=== PATIENT | female | born 1980 | race Caucasian/White ===

== ENCOUNTER 2016-10-31 03:45 | Inpatient (IN) ==
[2016-10-31] MEDS ORDERED: Penicillin G Potassium 5,000,000 UNIT in D5% in Water (Mini-Bag+) 100 ML IVPB ONE (04:04)
[2016-10-31] MEDS ORDERED: Metoclopramide 10 MG/2 ML VIAL IVP PRN (04:04)
[2016-10-31] MEDS ORDERED: Famotidine 20 MG/2 ML VIAL IVP PRN (04:04)
[2016-10-31] MEDS ORDERED: Naloxone 0.4 MG/ML INJ IVP PRN (04:04)
[2016-10-31] MEDS ORDERED: *HR* Nalbuphine 20 MG/ML AMPUL IVP PRN (04:07)
[2016-10-31] MEDS ORDERED: miSOPROStol 25 MCG TABLET VG SCH (04:15)
[2016-10-31 04:53] LABS: Basophils % 0.3 %; Eosinophils # 0.1 K/mcL (0.0-0.6); Hematocrit 32.6 % (35.3-44.9); Hemoglobin 10.6 g/dL (11.5-15.4); Immature Granulocytes % 1.4 % (0-4); Lymphocytes # 2.7 K/mcL (0.6-4.6); Lymphocytes % 21.3 %; Mean Corpuscular HGB Conc 32.5 g/dL (31.6-35.5); Monocytes # 1.1 K/mcL (0.0-1.3); Monocytes % 8.6 %; Neutrophils # 8.5 K/mcL (1.6-8.9); Platelet Count 251 K/mcL (140-400); Red Blood Count 3.93 M/mcL (3.82-4.97); Red Cell Distribution Width 13.5 % (11.5-14.5); Segmented Neutrophils % 67.4 %
[2016-10-31] MEDS: Ringers Solution, Lactated 1,000 ML IVC SCH ×2 (05:03→10:11)
[2016-10-31] MEDS ORDERED: 0.9 % Sodium Chloride 500 ML ONE (05:55)
--- NOTE | 2016-10-31 07:13 | OB/GYN History & Physical ---
Date of Encounter: 10/31/16 Time of Encounter: 07:05 Assessment and Plan (1) and not yet delivered in third trimester Current visit: Yes Status: Acute (2) 39 weeks gestation of Current visit: Yes Status: Acute (3) Elective induction of labor planned Current visit: Yes Status: Acute Patient will be induced with a Mallory catheter and Cytotec plan is to anticipate vaginal delivery. (4) Family planning advice Current visit: Yes Status: Acute Patient is scheduled for bilateral partial salpingectomy tomorrow History of Present Illness HPI: Ms. Sewell is a 36 year old female 7 [id number] at 39-3/7 weeks by a 13-4/ 7 week ultrasound who presented for induction of labor. Patient had a favorable cervix and was wanting to be induced. She has been suffering with severe hip pain for the last 2-3 weeks to the point she said difficulty in dilating. Patient denies any leaking fluid has been having occasional contractions. course has been unremarkable. 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 Patient is wanting a tubal ligation the risks and benefits of the tubal were expanded to patient with a failure rate of 5-8 per thousand with increased risk of ectopic if was to occur. Past Med Surg Social Fam HX - Past Medical History Medical history: no medical history Psychiatric history: anxiety, depression - Past Surgical History Surgical History: no surgical history - Social History Smoking Status: Never smoker Smokeless Tobacco Status: No Alcohol use: none Drug use: none, other (Does have a history of past drug use) Occupational status: employed Current living situation: Home - Independent Activity Level: Independent ambulation Recent Out of Country Travel Within the Last 8 Weeks: No Exposure or Possible Exposure to Illness During Travel: No - Family History Maternal Grandmother Hx Family Cancer: Yes (LUNG Cancer) - Additional Family History Additional family history: Family history noncontributory Obstetrical History - Pregnancies : 7 Para: 3 Term: 3 : 0 Ab's: 3 Livin Medications and Allergies Ranitidine HCl [Acid Regional Construction Manager] 150 mg PO DAILY 10/31/16 [History] Allergies gentamicin Allergy (Verified 10/31/16 04:12) Rash Review of System OB All systems PM: reviewed and no additional remarkable complaints except as stated Exam - Vital Signs Vital signs: Initial Vital Signs Temp Pulse Resp BP 97.4 F L 80 16 111/93 10/31/16 04:17 10/31/16 04:17 10/31/16 04:17 10/31/16 04:17 - Constitutional Constitutional: well developed, well nourished, average body habitus, moderate distress - HEENT HEENT: EOMI, PERRL - Neck Neck exam: full ROM - Lungs Respiratory exam: CTAB - Abdomen Abdomen: Present: bowel sounds normal, gravid - Cervix Dilation: 3 Effacement: 80 Station: -3 (Mallory catheter placed 40 mL balloon inflated) - Uterus Uterus exam: Present: normal size Results Result Diagrams: 10/31/16 04:35 Abnormal lab results WBC 12.6 K/mcL (4.3-11.1) H 10/31/16 04:35 Hgb 10.6 g/dL (11.5-15.4) L 10/31/16 04:35 Hct 32.6 % (35.3-44.9) L 10/31/16 04:35 MCH 27.0 pg (28.0-33.3) L 10/31/16 04:35 All other labs normal. - VTE Reasons for not Prescribing Prophylaxis: Treatment not Indicated - Low risk for VTE
[2016-10-31] MEDS: Penicillin G Potassium 2,500,000 UNIT in D5% in Water 100 ML IVPB SCH ×3 (09:03→17:07)
[2016-10-31] MEDS ORDERED: Ondansetron 4 MG/2 ML VIAL IVP PRN (09:09)
[2016-10-31] MEDS ORDERED: Epidural Premix (fent/bupiv) 110 ML EP ONE ×2 (10:22→17:26)
--- NOTE | 2016-10-31 10:27 | Anesthesia Evaluation PreOp ---
Date of Encounter: 10/31/16 Time of Encounter: 10:24 - Past History Planned Operation: BRANDYN Cardiac History: Denies any Significant Hx Pulmonary History: Denies Any Significant HX UTILIZATION MANAGEMENT UM NURSE History: Denies Any Significant HX Other Medical History: Denies Any Significant HX Anesthesia History: No Prior Anesthetic Complications, Past Anesthesia : Yes (39.3) Test: Positive Alcohol Use: none Drug use: none, other (Does have a history of past drug use) Medications and Allergies Ranitidine HCl [Acid Software Educator] 150 mg PO DAILY 10/31/16 [History] Allergies gentamicin Allergy (Verified 10/31/16 04:12) Rash - Meds/Allergy Pre-op Review Medications Reviewed: Yes Allergies Reviewed: Yes Beta Blockers on Current Med List: No Anesthesia Results - Labs 10/31/16 04:35 Anesthesia Exam 112/68 18 98% 77 fht 173 Height: 66 Weight: 229 NPO (# of Hours): mn Pain Scale: 5 - HEENT Pupil (Motor): Pupils equal Teeth: Normal Oral Opening: Greater than 3 - UTILIZATION MANAGEMENT UM NURSE LOC: Oriented UTILIZATION MANAGEMENT UM NURSE Motor: Normal RUE, Normal LUE, Normal RLE, Normal LLE, Normal Face UTILIZATION MANAGEMENT UM NURSE Sensory: Normal: RUE, LUE, RLE, LLE, Face
[2016-10-31] MEDS ORDERED: Epidural Premix (fent/bupiv) 110 ML EP SCH (10:30)
--- NOTE | 2016-10-31 10:53 | Anesthesia Procedures ---
Date of Encounter: 10/31/16 Time of Encounter: 10:30 Procedures: Anesthesia - Epidural/Spinal Patient ID/Chart reviewed: Yes Patient examined: Yes OB Eval: Gestational age: 39.1 OB Eval: : 5 OB Eval: Hx Para: 3 OB Eval: Dilated at (cm): 4 OB Eval: Contractions: Non-stressed pattern Consent Obtained: Yes Supplemental Oxygen: None/Room Air Site Prep: Aseptic Technique, Sterile prep and drape, Povidone-Iodine 1% Patient position: upright Local Anesthetic: Lidocaine 1% Amount of Local Anesthetic used: 3 Touhy Needle Gauge: 18 Touhy Needle Depth (cm): 7 Catheter Depth at Skin (cm): 9 Test Dose (1.5% Lido + Epi): Volume given (mls): 3 Test Dose Result: Negative Loading Dose Administered: Thru Catheter Infusion Med: 0.125% Bupivacaine w/ 2 mcg/ml Fentanyl Infusion Rate (mls/hr): [address]: Tegaderm, Tape Interspace Used: L3-L4 Loss of Resistance (NEIDA): Yes Blood: No CSF: No Paresthesia: No Vitals + FHT's: stable throuhout see nursing notes
[2016-10-31] MEDS ORDERED: Terbutaline 1 MG/ML VIAL SQ ONE ×2 (11:02→11:05)
[2016-10-31] MEDS ORDERED: EPHEDrine 50 MG/ML VIAL ONE (11:49)
[2016-10-31] MEDS ORDERED: *HR* Promethazine 25 MG/ML VIAL IVP PRN ×2 (12:10→12:26)
--- NOTE | 2016-10-31 12:45 | OB Labor Progress Note ---
Date of Encounter: 10/31/16 Time of Encounter: 12:40 Labor Progress Note - Subjective Subjective: Patient nauseated after epidural blood pressure had dropped but feeling a little bit better. Mallory catheter is out not feeling contractions anymore - Cervix Cervix: 5/80/-2 AROM large amt clear fluid - Heart Tones Heart Tones: FSM placed FHT's 140's reactive - Burchinal Burchinal: IUPC placed contractions every 2 min - Plan Plan: anticipate
[2016-10-31] MEDS ORDERED: Oxytocin 20 units/ LR 1000 mL 20 UNIT/1,000 ML BAG IVC SCH (14:25)
--- NOTE | 2016-10-31 17:05 | OB Labor Progress Note ---
Date of Encounter: 10/31/16 Time of Encounter: 16:00 Labor Progress Note - Subjective Subjective: Patient is still very comfortable not feeling contractions at this time. - Cervix Cervix: 6/80/-2 - Heart Tones Heart Tones: heart tones 140s reactive with occasional early decelerations seen - Shattuck Shattuck: Contractions every 2-4 minutes - Plan Plan: Continue current care anticipate normal spontaneous vaginal delivery
--- NOTE | 2016-10-31 17:06 | OB Labor Progress Note ---
Date of Encounter: 10/31/16 Time of Encounter: 17:00 Labor Progress Note - Subjective Subjective: Patient beginning to feel a little bit of pressure in the contractions but still tolerating them well - Cervix Cervix: 7/100/-1 - Heart Tones Heart Tones: heart tones in the 140s reactive - Wyndham Wyndham: Contractions every 2 minutes adequate - Plan Plan: We will hold pit at current dose and anticipate normal spontaneous vaginal delivery
--- NOTE | 2016-10-31 19:06 | OB/GYN Procedure Note ---
Delivery - Delivery Date: 10/31/16 Provider: Can Jesus Intrapartum events: none Delivery induction: AROM, oxytocin, rosario, misoprostol Delivery monitor: external FHT, external uterine, internal FHT, internal uterine Anesthesia: epidural Estimated Blood Loss: 100 - (s) Infant A Infant Delivery Date: 10/31/16 Delivery Time: 18:42 Presentation: vertex Position: VETO Route of delivery: Gender: Female Viability: Viable Pounds: 7 Ounces: 8 Weight Gram: 3.4 kg at 1 minute: 8 at 5 mins: 9 Shoulder Dystocia: not encountered Specimens collected: cord blood Placenta: spontaneous Cord: nuchal cord (Times 2), 3 umbilical vessels, nuchal reduced - Repair Episiotomy: none Laceration Description: None - Complications Delivery complications: none Delivery comments: Patient is a 36-year-old 7 para [id number] at 39-2/7 weeks who presented for induction of labor. Patient had a favorable cervix and was having hip pain and requested induction. She does report to labor and delivery Cytotec was placed along with a Rosario catheter. Catheter fell out when she was 4-5 cm epidural was placed she was artificially ruptured clear fluid noted. Patient progressed slowly to approximately 6 cm and rapidly from this point. Patient became complete and pushed one time delivering a viable female in right occiput anterior presentation at 1842. There was a nuchal cord 2 loose and reduced there was no meconium the was bulb suctioned on the abdomen Apgars were 8 at 1 minute and 9 at 5 minutes. weight was 7 lbs. [address] Jesus anesthesia epidural. Placenta delivered spontaneously 3 vessel cord , perineum cervix and vagina was all visualized intact. Patient tolerated the delivery well will be observed 2 hours before being taken floor. - Disposition Mom disposition: stable in LDR [place] disposition: stable in LDR
[2016-10-31] MEDS ORDERED: Oxytocin 20 units/ LR 1000 mL 20 UNIT/1,000 ML BAG IVC ONE (20:03)
[2016-10-31] MEDS ORDERED: Acetaminophen 325 MG TABLET PO PRN (20:03)
[2016-10-31] MEDS ORDERED: Measles/Mumps/Rubella Vacc 0.5 ML VIAL SQ PRN (20:03)
[2016-10-31] MEDS ORDERED: Oxytocin 20 units/ LR 1000 mL 20 UNIT/1,000 ML BAG IV SCH (20:03)
[2016-10-31] MEDS: Ibuprofen 600 MG TABLET PO PRN (20:14)
[2016-11-01 03:45] LABS: Basophils % 0.2 %; Eosinophils # 0.1 K/mcL (0.0-0.6); Eosinophils % 0.4 %; Hematocrit 27.7 % (35.3-44.9); Immature Granulocytes % 0.7 % (0-4); Immature Platelets 8.9 % (1.1-6.1); Lymphocytes # 2.4 K/mcL (0.6-4.6); Lymphocytes % 13.9 %; Mean Corpuscular HGB Conc 32.1 g/dL (31.6-35.5); Mean Corpuscular Hemoglobin 26.8 pg (28.0-33.3); Mean Corpuscular Volume 83.4 fL (83.0-100.0); Monocytes # 1.6 K/mcL (0.0-1.3); Monocytes % 9.7 %; Neutrophils # 12.7 K/mcL (1.6-8.9); Platelet Count 225 K/mcL (140-400); Red Blood Count 3.32 M/mcL (3.82-4.97); Red Cell Distribution Width 13.7 % (11.5-14.5); Segmented Neutrophils % 75.1 %
[2016-11-01 03:48] LABS: Hemoglobin 8.9 g/dL (11.5-15.4)
[2016-11-01] MEDS: Ibuprofen 600 MG TABLET PO PRN (04:26)
[2016-11-01 07:58] VITALS: BP 100/70
--- NOTE | 2016-11-01 08:20 | Discharge Summary ---
Date of Encounter: 11/01/16 Time of Encounter: 08:18 - Discharge Diagnosis (1) Vaginal delivery Priority: Primary Status: Acute Comments: Continue routine care discharge home today (2) Breast feeding status of mother Priority: Secondary Status: Acute Comments: support PRN - Discharge Medications Prescriptions: Ibuprofen [Motrin] 600 mg PO Q6HR PRN #60 tablet PRN Reason: Cramping Breast Pump [BREAST PUMP] 1 each .ROUTE AD #1 each Home Medications: Ranitidine HCl [Acid Rubber Press Operator] 150 mg PO DAILY 10/31/16 [History] Breast Pump [BREAST PUMP] 1 each .ROUTE AD #1 each 11/01/16 [Rx] Ibuprofen [Motrin] 600 mg PO Q6HR PRN #60 tablet 11/01/16 [Rx] Vit/FA 1 each PO DAILY tablet 11/01/16 [Rx] Allergies/Adverse Reactions: Allergies gentamicin Allergy (Verified 10/31/16 04:12) Rash Data Procedures and tests throughout hospitalization: Laboratory Tests 10/31/16 10/31/16 11/01/16 04:35 19:00 03:27 WBC 12.6 H 16.9 H RBC 3.93 3.32 L Hgb 10.6 L 8.9 L D Hct 32.6 L 27.7 L MCV 83.0 83.4 MCH 27.0 L 26.8 L MCHC 32.5 32.1 RDW 13.5 13.7 Plt Count 251 225 MPV 12.0 12.0 Immature Gran % 1.4 0.7 Seg Neutrophils % 67.4 75.1 Lymphocytes % 21.3 13.9 Monocytes % 8.6 9.7 Eosinophils % 1.0 0.4 Basophils % 0.3 0.2 Neutrophils # 8.5 12.7 H Lymphocytes # 2.7 2.4 Monocytes # 1.1 1.6 H Eosinophils # 0.1 0.1 Basophils # 0.0 0.0 Immature Plt Fraction 8.9 H Baby's Blood Type O RH POSITIVE Mother's Blood Type O RH NEGATIVE Rhogam Indicated YES Labs on day of discharge: Labs from last 24 hours 11/01/16 10/31/16 03:27 19:00 WBC 16.9 H RBC 3.32 L Hgb 8.9 L D Hct 27.7 L MCV 83.4 MCH 26.8 L MCHC 32.1 RDW 13.7 Plt Count 225 MPV 12.0 Immature Gran % 0.7 Seg Neutrophils % 75.1 Lymphocytes % 13.9 Monocytes % 9.7 Eosinophils % 0.4 Basophils % 0.2 Neutrophils # 12.7 H Lymphocytes # 2.4 Monocytes # 1.6 H Eosinophils # 0.1 Basophils # 0.0 Immature Plt Fraction 8.9 H Screen Pending Baby's Blood Type O RH POSITIVE Mother's Blood Type O RH NEGATIVE Rhogam Indicated YES Rhogam Req for Mother Pending Date of admission: 10/31/16 04:02 Primary care physician: Carlo Bennett MD Discharging clinician: Roseanne Elliott Anticipated date of discharge: 11/01/16 - Patient Status Disposition: Home, Self-Care Condition: Good Functional capacity at discharge: independent ambulation - Discharge Instructions Follow Up With: Carlo Bennett MD [Primary Care Provider] - Can Jesus DO [Partnered Physician] - - Diet and Activity Activity: increase activity as tolerated Diet: regular diet Hospital Course Reason for admission: induction of labor Delivery: Episiotomy: none Other procedures: none complications: none Discharge diagnosis: IUP at term delivered baby: female (breast feeding) Time Attestation: Total time spent providing and/or coordinating discharge services: Time Spent: Less than 30 minutes Exam - Constitutional Vitals: Temp Pulse Resp BP Pulse Ox 98 F 83 12 100/70 99 11/01/16 07:56 11/01/16 07:56 11/01/16 07:56 11/01/16 07:56 11/01/16 07:56 General appearance IM: A&O X 3, pleasant, answers questions appropriately - Respiratory Respiratory exam: Present: CTAB - Cardiovascular Cardiovascular exam IM: Present: RRR, +S1, +S2 - GI/Abdominal GI/Abdominal exam IM: normal bowel sounds - Uterine Tone: Firm Uterus Position: At Umbilicus, Midline - Extremities Exam Extremities exam IM: Present: normal capillary refill, normal inspection - Neurological Exam Neurological exam: alert, oriented X3, reflexes normal
[2016-11-01] MEDS ORDERED: Prenatal Vit/FA 1 EACH TABLET PO SCH (09:00)
[2016-11-01] MEDS ORDERED: Famotidine 20 MG TABLET PO SCH (09:00)
[2016-11-01] MEDS ORDERED: Rho Immune Globulin 1,500 UNIT SYRINGE IM ONE (10:23)
== END 2016-11-01 17:20 | disposition home or self-care (01) | DRG 560 ==
LOC: 1NENULAB 04:02 → 1NENUOBS 21:30
PROVIDERS: ADMIT Obstetrics & Gynecology; ATTEND Obstetrics & Gynecology

== ENCOUNTER 2021-04-18 22:08 | Inpatient (IN) ==
[2021-04-19] MEDS ORDERED: Naloxone 0.4 MG/ML INJ IVP PRN (01:28)
[2021-04-19] MEDS ORDERED: Ondansetron 4 MG/2 ML VIAL IVP PRN (01:28)
[2021-04-19] MEDS ORDERED: 0.9 % Sodium Chloride 1,000 ML IVC SCH (01:30)
[2021-04-19 02:37] LABS: Basophils % 0.2 %; Eosinophils % 0.1 %; Hematocrit 34.4 % (35.3-44.9); Hemoglobin 11.5 g/dL (11.5-15.4); Immature Granulocytes % 0.5 % (0-4); Lymphocytes # 1.1 K/mcL (0.6-4.6); Lymphocytes % 5.8 %; Mean Corpuscular HGB Conc 33.4 g/dL (31.6-35.5); Mean Corpuscular Volume 86.6 fL (83.0-100.0); Mean Platelet Volume 12.3 fL (9.4-12.4); Monocytes # 1.9 K/mcL (0.0-1.3); Monocytes % 10.2 %; Neutrophils # 15.2 K/mcL (1.6-8.9); Platelet Count 219 K/mcL (140-400); Red Blood Count 3.97 M/mcL (3.82-4.97); Red Cell Distribution Width 15.9 % (11.5-14.5); Segmented Neutrophils % 83.2 %; White Blood Count 18.3 K/mcL (4.3-11.1)
[2021-04-19 02:42] LABS: INR 1.1; Prothrombin Time 12.2 Seconds (9.4-12.1)
[2021-04-19 02:44] LABS: Activated Partial Thrombo Time 25.6 Seconds (26.0-36.0)
[2021-04-19 03:10] LABS: Alanine Aminotransferase 834 Units/L (7-52); Albumin 3.2 g/dL (3.5-5.7); Albumin/Globulin Ratio 1.2 (1.1-2.2); Alkaline Phosphatase 214 Units/L (34-104); Aspartate Amino Transferase 432 Units/L (13-39); BUN/Creatinine Ratio 16 (6-26); Bilirubin,Total 1.5 mg/dL (0.3-1.0); Blood Urea Nitrogen 13 mg/dL (6-20); Calcium 8.9 mg/dL (8.6-10.3); Carbon Dioxide 21 mEq/L (23-29); Chloride 107 mEq/L (98-107); Chol/HDL Ratio 6.9 (0-4.9); Cholesterol 172 mg/dL (< 200); Globulin 2.7 g/dL (2.4-3.5); Glucose 118 mg/dL (70-105); HDL Cholesterol 25 mg/dL (40-59); LDL Cholesterol,Calculated 129 mg/dL (< 100); Osmolality,Calculated 283 (280-300); Potassium 3.3 mEq/L (3.5-5.1); Sodium 136 mEq/L (136-145); Thyroid Stimulating Hormone 2.199 mcIU/mL (0.340-5.600); Total Protein 5.9 g/dL (6.4-8.9); Triglycerides 92 mg/dL (< 150); eGFR For African Americans > 60 (> 60); eGFR For Non-African Americans > 60 (> 60)
[2021-04-19 03:15] LABS: Hepatitis B Surface Antigen Nonreactive (Nonreactive)
[2021-04-19 03:46] LABS: Hepatitis A Antibody IgM Nonreactive (Nonreactive)
[2021-04-19 03:49] LABS: Hepatitis B Core IgM Nonreactive (Nonreactive)
[2021-04-19 05:09] LABS: Hepatitis C Virus Antibody Reactive (Nonreactive)
[2021-04-19 07:34] LABS: Adenovirus Not Detected (Not Detect); Bordetella Pertussis Not Detected (Not Detect); Chlamydophila pneumoniae Not Detected (Not Detect); Coronavirus 229E Not Detected (Not Detect); Coronavirus HKU1 Not Detected (Not Detect); Coronavirus NL63 Not Detected (Not Detect); Coronavirus OC43 Not Detected (Not Detect); Human Metapneumovirus Not Detected (Not Detect); Human Rhinovirus/Enterovirus Not Detected (Not Detect); Influenza A Subtype 2009 H1 Not Detected (Not Detect); Influenza B Not Detected (Not Detect); Mycoplasma pneumoniae Not Detected (Not Detect); Parainfluenza Virus 1 Not Detected (Not Detect); Parainfluenza Virus 2 Not Detected (Not Detect); Parainfluenza Virus 3 Not Detected (Not Detect); Parainfluenza Virus 4 Not Detected (Not Detect); Respiratory Syncytial Virus Not Detected (Not Detect); SARS-CoV-2 Not Detected (Not Detect)
[2021-04-19] MEDS ORDERED: Potassium Chloride 20 MEQ, Lidocaine 1% 2 ML in 0.9 % Sodium Chloride 250 ML IVPB ONE (09:09)
[2021-04-19] MEDS: 0.9 % Sodium Chloride 1,000 ML IVC SCH ×2 (10:04→20:20)
[2021-04-19] MEDS: cefTRIAXone 1,000 MG in 0.9 % Sodium Chloride Mini Bag 100 ML IVPB SCH (10:05)
[2021-04-19 12:20] LABS: Amphetamine Screen,Urine Negative ng/mL (Cutoff=1000); Barbiturate Screen,Urine Negative ng/mL (Cutoff=200); Benzodiazepines Screen,Urine Negative ng/mL (Cutoff=200); Cannabinoid Screen,Urine Negative ng/mL (Cutoff = 50); Cocaine Screen,Urine Negative ng/mL (Cutoff= 300); Opiate Screen,Urine Negative ng/mL (Cutoff=300); Phencyclidine Screen,Urine Negative ng/mL (Cutoff=25)
[2021-04-19] MEDS: *HR* Heparin 5,000 UNIT/ML VIAL SQ SCH ×3 (15:05→20:26)
[2021-04-19 15:08] LABS: INR 1.1; Prothrombin Time 12.5 Seconds (9.4-12.1)
[2021-04-19 15:28] LABS: Iron < 10 mcg/dL (50-170); Transferrin 332 mg/dL (203-362)
[2021-04-19] MEDS ORDERED: Ibuprofen 600 MG TABLET PO ONE (20:48)
[2021-04-20 00:34] LABS: Basophils % 0.3 %; Eosinophils # 0.1 K/mcL (0.0-0.6); Eosinophils % 0.4 %; Hematocrit 29.6 % (35.3-44.9); Immature Granulocytes % 0.6 % (0-4); Lymphocytes # 1.7 K/mcL (0.6-4.6); Lymphocytes % 13.6 %; Mean Corpuscular HGB Conc 31.8 g/dL (31.6-35.5); Mean Corpuscular Hemoglobin 28.7 pg (28.0-33.3); Mean Corpuscular Volume 90.5 fL (83.0-100.0); Mean Platelet Volume 12.3 fL (9.4-12.4); Monocytes # 1.6 K/mcL (0.0-1.3); Monocytes % 12.6 %; Neutrophils # 9.3 K/mcL (1.6-8.9); Platelet Count 186 K/mcL (140-400); Red Blood Count 3.27 M/mcL (3.82-4.97); Red Cell Distribution Width 16.6 % (11.5-14.5); Segmented Neutrophils % 72.5 %; White Blood Count 12.8 K/mcL (4.3-11.1)
[2021-04-20 00:37] LABS: Hemoglobin 9.4 g/dL (11.5-15.4)
[2021-04-20 00:56] LABS: BUN/Creatinine Ratio 15 (6-26); Blood Urea Nitrogen 11 mg/dL (6-20); Calcium 7.8 mg/dL (8.6-10.3); Carbon Dioxide 21 mEq/L (23-29); Chloride 112 mEq/L (98-107); Glucose 137 mg/dL (70-105); Magnesium 1.6 mg/dL (1.6-2.6); Osmolality,Calculated 286 (280-300); Phosphorous 2.6 mg/dL (2.7-4.5); Potassium 4.3 mEq/L (3.5-5.1); Sodium 137 mEq/L (136-145); eGFR For African Americans > 60 (> 60); eGFR For Non-African Americans > 60 (> 60)
[2021-04-20] MEDS: 0.9 % Sodium Chloride 1,000 ML IVC SCH ×2 (08:27→17:13)
[2021-04-20] MEDS: cefTRIAXone 1,000 MG in 0.9 % Sodium Chloride Mini Bag 100 ML IVPB SCH (08:29)
[2021-04-20 09:42] LABS: Alanine Aminotransferase 584 Units/L (7-52); Alkaline Phosphatase 165 Units/L (34-104); Aspartate Amino Transferase 251 Units/L (13-39); Bilirubin,Direct 0.4 mg/dL (0.0-0.2); Bilirubin,Indirect 0.5 mg/dL (0.0-1.0); Bilirubin,Total 0.9 mg/dL (0.3-1.0)
[2021-04-20] MEDS: *HR* Heparin 5,000 UNIT/ML VIAL SQ SCH ×2 (14:51→21:34)
[2021-04-20] MEDS: Ibuprofen 400 MG TABLET PO PRN ×2 (15:21→21:50)
[2021-04-21] MEDS: 0.9 % Sodium Chloride 1,000 ML IVC SCH (02:00)
[2021-04-21] MEDS: *HR* Heparin 5,000 UNIT/ML VIAL SQ SCH (06:11)
[2021-04-21 06:56] LABS: Hematocrit 29.1 % (35.3-44.9); Hemoglobin 9.4 g/dL (11.5-15.4); Mean Corpuscular HGB Conc 32.3 g/dL (31.6-35.5); Mean Corpuscular Volume 89.8 fL (83.0-100.0); Mean Platelet Volume 12.6 fL (9.4-12.4); Platelet Count 222 K/mcL (140-400); Red Blood Count 3.24 M/mcL (3.82-4.97); Red Cell Distribution Width 17.3 % (11.5-14.5)
[2021-04-21 06:57] LABS: White Blood Count 5.4 K/mcL (4.3-11.1)
[2021-04-21 06:58] LABS: Smooth Muscle Ab Titer IgG <1:20 (<1:20)
[2021-04-21 07:15] LABS: Alanine Aminotransferase 498 Units/L (7-52); Alkaline Phosphatase 174 Units/L (34-104); Aspartate Amino Transferase 330 Units/L (13-39); BUN/Creatinine Ratio 14 (6-26); Blood Urea Nitrogen 10 mg/dL (6-20); Calcium 7.9 mg/dL (8.6-10.3); Carbon Dioxide 24 mEq/L (23-29); Chloride 113 mEq/L (98-107); Glucose 105 mg/dL (70-105); Osmolality,Calculated 289 (280-300); Potassium 4.2 mEq/L (3.5-5.1); Sodium 140 mEq/L (136-145); eGFR For African Americans > 60 (> 60); eGFR For Non-African Americans > 60 (> 60)
[2021-04-21 07:17] LABS: Bilirubin,Direct 0.5 mg/dL (0.0-0.2); Bilirubin,Indirect 0.3 mg/dL (0.0-1.0); Bilirubin,Total 0.8 mg/dL (0.3-1.0)
[2021-04-21 07:34] VITALS: BP 124/82; PULSE 75; TEMP 98.4; O2SAT 95
[2021-04-21] MEDS: cefTRIAXone 1,000 MG in 0.9 % Sodium Chloride Mini Bag 100 ML IVPB SCH (08:36)
[2021-04-21 10:18] LABS: HCV Quant Interpretation DETECTED (Not Detected); HCV Quant Log 5.91 log IU/mL
[2021-04-22 07:15] LABS: F-Actin (sm muscle) Ab IgG 20 Units (0-19)
[2021-04-22 07:58] LABS: ANA IgG by ELISA NONE DETECTED (None Detected)
[2021-04-23 10:25] LABS: Serine Protease-3 Antibody 0 AU/mL (0-19); Smooth Muscle Ab Titer IgG <1:20 (<1:20)
[2021-04-23 17:54] LABS: Alpha 2 Globulin (PEP) 0.67 g/dL (0.48-1.05)
[2021-04-24 11:23] LABS: IFE Reflexed NOT DONE
[2021-04-25 10:10] LABS: HCV Genotype by Sequencing 1A OR 1B
== END 2021-04-21 11:47 | disposition home or self-care (01) | DRG 720 ==
LOC: 3BNU → SUATTDRO 04-19 01:16
PROVIDERS: ADMIT Student in an Organized Health Care Education/Training Program; ATTEND Internal Medicine